=== PATIENT | male | born 1945 | race Caucasian/White ===

== ENCOUNTER 2023-01-11 11:32 | Outpatient (CLI) | payer MEDICARE, SELFPAY | END 2023-01-11 11:33 | disposition home or self-care (01) | PROVIDERS: PCP Family Medicine; Visit Provider Family Medicine | DX: I10 Essential (primary) hypertension (principal); E55.9 Vitamin D deficiency, unspecified; E11.9 Type 2 diabetes mellitus without complications; I25.10 Atherosclerotic heart disease of native coronary artery without angina pectoris | CPT/HCPCS: 80048; 80061 ==

== ENCOUNTER 2023-10-12 07:31 | Emergency (ER) | payer MEDICARE, SELFPAY ==
[2023-10-12 07:42] VITALS: BP 174/79; PULSE 67; RESP 18; TEMP 36.4; O2SAT 93; BMI 29.9
--- NOTE | 2023-10-12 08:41 | ED.GENADULT ---
HPI - General Adult General Chief complaint: Chest Pain Stated complaint: cough, headache, chest pain Time Seen by Provider: 10/12/23 08:11 History of Present Illness HPI narrative: patient has had a horrible cough since last Sunday and unable to get rid of it. Urgent care tested for strep throat negative, BP has been high 182/65 and feet are swelling up. feels went backwards last night, wheezing . concerned of wanting a cxr and right chest is sore. having recurring esquivel during the week but not today. 77-year-old man presenting to the emergency department with complaint of cough and sore throat. He has no head about a week of cough. Sounds to be primarily a prone cough. Was prescribed benzonatate I believe the 100 mg Tessalon Perles, and has not been helpful. Was also screen for strep throat. This was negative. Chest is sore now with a cough. Has a headache he describes as frontal. Also endorses neck pain when I ask. Has been now been on 3 days of Augmentin after called in reporting not improved with regard to cough. Noting that that has not done anything either. Related Data Home Medications Medication Instructions Recorded Confirmed ascorbic acid (vitamin C) 1,000 mg 1,000 mg PO DAILY 05/29/22 10/29/23 tablet aspirin 81 mg tablet,delayed 81 mg PO DAILY 05/29/22 10/29/23 release cholecalciferol (vitamin D3) 125 5,000 unit PO DAILY 05/29/22 10/29/23 mcg (5,000 unit) capsule magnesium oxide 400 mg (241.3 mg 400 mg PO DAILY 05/29/22 10/29/23 magnesium) tablet nitroglycerin 0.4 mg sublingual 0.4 mg sublingual Q5-15M PRN 05/29/22 10/29/23 tablet zinc gluconate 50 mg tablet 50 mg PO DAILY 05/29/22 10/29/23 metformin 500 mg tablet,extended 500 mg PO QPM 05/23/23 10/29/23 release 24 hr vitamin B complex (B 1 tab PO QDAY 10/29/23 10/29/23 Complex-Vitamin B12 tablet) Previous Rx's Medication Instructions Recorded blood sugar diagnostic (Contour #100 ea 06/01/23 Test Strips) lancets (Microlet Lancet) #100 ea 06/01/23 atenolol 50 mg tablet 50 mg PO QDAY #90 tabs 10/29/23 lisinopril 10 mg tablet 10 mg PO QDAY #30 tabs 10/29/23 Allergies Allergy/AdvReac Type Severity Reaction Status Date / Time azithromycin Allergy Severe Verified 10/29/23 14:12 shellfish derived Allergy Severe Verified 10/29/23 14:12 hydrocodone Allergy Intermediate Headache, Verified 10/29/23 14:12 N&V propoxyphene Allergy Intermediate Headache, Verified 10/29/23 14:12 N&V Review of Systems Status of ROS: Reports: 6 or more systems reviewed and unremarkable except as noted in History and below [facility] Medical History Situational depression ?F43.21 - Adjustment disorder with depressed mood (ICD-10) Type 2 diabetes mellitus without complication, with no history of insulin use ?E11.9 - Type 2 diabetes mellitus without complications (ICD-10) Erectile dysfunction ?N52.9 - Male erectile dysfunction, unspecified (ICD-10) COVID-19 virus infection ?U07.1 - COVID-19 (ICD-10) Vitamin D deficiency (02/04/11) ?E55.9 - Vitamin D deficiency, unspecified (ICD-10) Statin intolerance ?Z78.9 - Other specified health status (ICD-10) Lumbar back pain ?M54.50 - Low back pain, unspecified (ICD-10) Irritable bowel syndrome (12/01/08) ?K58.9 - Irritable bowel syndrome without diarrhea (ICD-10) History of drug abuse in remission ?F19.11 - Other psychoactive substance abuse, in remission (ICD-10) History of diverticulitis ?Z87.19 - Personal history of other diseases of the digestive system (ICD-10) History of concussion (07/02/20) ?Z87.820 - Personal history of traumatic brain injury (ICD-10) History of colonic polyps ?Z86.010 - Personal history of colonic polyps (ICD-10) Chronic pain syndrome ?G89.4 - Chronic pain syndrome (ICD-10) Arteriosclerotic cardiovascular disease ?I25.10 - Atherosclerotic heart disease of [place] coronary artery without angina pectoris (ICD-10) Hypertension ?I10 - Essential (primary) hypertension (ICD-10) Surgical History History of total knee replacement (2000) ?Z96.659 - Presence of unspecified artificial knee joint (ICD-10) History of spinal surgery ?Z98.890 - Other specified postprocedural states (ICD-10) History of hernia repair (1988) ?Z98.890 - Other specified postprocedural states (ICD-10) ?Z87.19 - Personal history of other diseases of the digestive system (ICD-10) History of coronary artery stent placement (07/31/20) ?Z95.5 - Presence of coronary angioplasty implant and graft (ICD-10) History of arthroscopy of left shoulder (02/04/16) ?Z98.890 - Other specified postprocedural states (ICD-10) Family History Son Epilepsy Type 2 diabetes mellitus Father Stomach cancer Prostate cancer Mother Type 2 diabetes mellitus Brother Type 2 diabetes mellitus Social History Narrative: , 3 kids, retired, non-smoker, no alcohol Smoking Status: Former smoker Non-prescribed substance use: denies use Little interest or pleasure in doing things: not at all Feeling down, depressed, or hopeless: not at all Exam Narrative: Exam Narrative: Pleasant. NAD. Maybe a little tired. Sounds laryngitic. Oropharynx with a little posterior oropharyngeal irritation not exactly cobblestoning. Coarseness to breath sounds in the left upper chest. No wheeze. Neck is supple without lymphadenopathy. Trachea midline. There is no stridor. Heart in regular rate and rhythm. Extremities well perfused without edema. Noted pulse ox initially 93%. On review of record this looks to be 2-3 points lower than usual. Const: Vital Signs, click to edit/add: Vital Signs - 24 hr 10/12/23 07:42 Temperature 97.5 F L Pulse Rate [Right Pulse Oximeter] 67 Respiratory Rate 18 Blood Pressure [Ri ght Upper Arm] 174/79 H Pulse Oximetry 93 Oxygen Delivery Me thod Room Air Documenting provider has reviewed patient's vital signs: yes Course Vital Signs Vital signs: Initial Vital Signs Temperature 97.5 F L 10/12/23 07:42 Temperature Source Temporal Artery Scan 12/29/23 07:42 Pulse Rate 67 10/12/23 07:42 Respiratory Rate 18 10/12/23 07:42 Blood Pressure 174/79 H 10/12/23 07:42 Blood Pressure Mean 110 H 10/12/23 07:42 Blood Pressure Position Sitting 10/12/23 07:42 Pulse Oximetry 93 10/12/23 07:42 Oxygen Delivery Method Room Air 10/12/23 07:42 Vital Signs Temperature 97.5 F L 10/12/23 07:42 Pulse Rate 67 10/12/23 07:42 Respiratory Rate 18 10/12/23 07:42 Blood Pressure 174/79 H 10/12/23 07:42 Pulse Oximetry 93 10/12/23 07:42 Oxygen Delivery Method Room Air 10/12/23 07:42 Temperature 97.5 F L 10/12/23 07:42 Pulse Rate 67 10/12/23 07:42 Respiratory Rate 18 10/12/23 07:42 Blood Pressure 174/79 H 10/12/23 07:42 Pulse Oximetry 93 10/12/23 07:42 Oxygen Delivery Method Room Air 10/12/23 07:42 Medical Decision Making MDM Narrative Medical decision making narrative: Considering community prevalence I would screen for COVID influenza and actually RSV. May have a pneumonia, bacterial. Cough also partly potentially related to postnasal drip. Slightly suppressed oxygen saturations but might indicate some pulmonary congestion. Suppose could have heart failure exacerbation; undiagnosed on review of records. Underlying history of diabetes. I would focus on infectious etiology at this point One-view chest x-ray reviewed by me looks to so some interstitial congestion. Radiology over-read below. INDICATION: COUGH, CHEST PAIN TECHNIQUE: Chest 1 views. COMPARISON: Chest radiograph on May 12, 2022 FINDINGS/IMPRESSION: The heart is mildly enlarged, likely accentuated by portable technique. There is mild pulmonary vascular congestion and faint patchy airspace opacities bilaterally which may be secondary to edema versus an acute infectious/inflammatory process. Similar appearing prominent bibasilar interstitial markings, likely related to fibrosis. No focal airspace consolidation, large pleural effusion, or pneumothorax. No acute fracture or malalignment. Degenerative changes of the bilateral shoulders. Was positive ultimately for RSV. I think this is consistent with findings and chest x-ray. Might benefit from course of prednisone. Discussed potential effect on blood sugars. This is directed little bit more at the laryngitis. Might be helpful for his cough. He had noted wheeze but I think that is more of an upper airway description. I did not hear any wheeze today. I do not think there is an actual bacterial pneumonia here. See patient discharge Lab Data Lab results reviewed: Yes I reviewed the patient's lab results Labs: Lab Results 10/12/23 Range/Units 08:43 SARS-CoV-2 (PCR) Negative SARS-CoV-2 (Negative) Influenza Type A (PCR) Negative PCR FLU A (Negative) Influenza Type B (PCR) Negative PCR FLU B (Negative) RSV (PCR) POSITIVE PCR RSV A (Negative) Discharge Plan Discharge Clinical Impression: Cough, Laryngitis, RSV bronchiolitis, Pharyngitis Patient Disposition: Home w/ Parent or Adult Condition: Stable Additional Instructions: Focus on hydration. Sleep with head of bed elevated. Might sleep under the mist of a cool mist humidifier. Yes, can try a tea with lemon and honey for cough. Maybe a little bit of straight honey as well? Menthol vapors might be helpful. Delsym or similar might be helpful for cough as well Could try a sucking on ice chips for cough? Could try anesthetic throat lozenges or sprays like Sucrets or Chloraseptic for your throat I do think you can stop the Augmentin Will send in some prednisone Be aware that prednisone can raise your blood sugars a little bit. Prescriptions: No Action vitamin B complex [B Complex-Vitamin B12] Tablet 1 tab PO QDAY atenolol 50 mg tablet 50 mg PO QDAY Qty: 90 3RF lisinopril 10 mg tablet 10 mg PO QDAY Qty: 30 1RF cholecalciferol (vitamin D3) 125 mcg (5,000 unit) capsule 5,000 unit PO DAILY zinc gluconate 50 mg tablet 50 mg PO DAILY magnesium oxide 400 mg (241.3 mg magnesium) tablet 400 mg PO DAILY aspirin 81 mg tablet,delayed release (DR/EC) 81 mg PO DAILY ascorbic acid (vitamin C) 1,000 mg tablet 1,000 mg PO DAILY nitroglycerin 0.4 mg tablet, sublingual 0.4 mg sublingual Q5-15M PRN metformin 500 mg tablet extended release 24 hr 500 mg PO QPM (DME) Contour Test Strips Strip See Rx Instructions .Route Qty: 100 3RF Rx Instructions: Patient to test once daily (DME) lancets [Microlet Lancet] Misc See Rx Instructions .Route Qty: 100 3RF Rx Instructions: Patient to test once daily Follow Up/Referrals: Jacob Shabazz MD [Primary Care Provider] - Stand Alone Forms: [employer] Info Instructions
--- NOTE | 2023-10-12 08:43 | CRLHL7_ITS ---
For Patients: As a result of the Century Cures Act, medical imaging exams and procedure reports are released immediately into your electronic medical record. You may view this report before your referring provider. If you have questions, please contact your health care provider. INDICATION: COUGH, CHEST PAIN TECHNIQUE: Chest 1 views. COMPARISON: Chest radiograph on May 12, 2022 FINDINGS/IMPRESSION: The heart is mildly enlarged, likely accentuated by portable technique. There is mild pulmonary vascular congestion and faint patchy airspace opacities bilaterally which may be secondary to edema versus an acute infectious/inflammatory process. Similar appearing prominent bibasilar interstitial markings, likely related to fibrosis. No focal airspace consolidation, large pleural effusion, or pneumothorax. No acute fracture or malalignment. Degenerative changes of the bilateral shoulders. Dictated by Camden Villanueva MD @ 10/12/2023 9:47:56 AM (Electronically Signed)
[2023-10-12 09:33] LABS: PCR FLU A Negative PCR FLU A (Negative); PCR FLU B Negative PCR FLU B (Negative); PCR RSV POSITIVE PCR RSV (Negative)
[2023-10-12 09:40] LABS: SARS PCR* Negative SARS-CoV-2 (Negative)
== END 2023-10-12 10:17 | disposition home or self-care (01) ==
PROVIDERS: Emergency Provider Family Medicine; PCP Family Medicine
DX: J21.0 Acute bronchiolitis due to respiratory syncytial virus (principal); J04.0 Acute laryngitis
CPT/HCPCS: 71045; 87631; 99283; 99284

== ENCOUNTER 2023-11-16 14:52 | Emergency (ER) | payer MEDICARE, SELFPAY ==
[2023-11-16] VITALS (19 sets, daily range): BP systolic 126–182; BP diastolic 77–110; PULSE 53–81; RESP 18; TEMP 36.2; O2SAT 92–98; BMI 28.5
--- NOTE | 2023-11-16 15:11 | CRLHL7_ITS ---
For Patients: As a result of the Century Cures Act, medical imaging exams and procedure reports are released immediately into your electronic medical record. You may view this report before your referring provider. If you have questions, please contact your health care provider. DATE: 11/16/2023 CLINICAL HISTORY: Patient with slurred speech. TECHNIQUE: Standard helical CT image acquisition of the neck up to the skull base after bolus intravenous contrast enhancement. 2D and 3D MIP images for post-processing were performed and interpreted on an independent workstation and 3D images were permanently archived. COMPARISON: CT same day. FINDINGS: The origins of the great vessels from the aortic arch are patent. The origin of the right vertebral artery demonstrates severe narrowing. The origin of the left vertebral artery is patent. The common carotid arteries are patent. There is no stenosis at the origin of the right internal carotid artery. There is no stenosis at the origin of the left internal carotid artery. The rest of the cervical segments of the internal carotid arteries are patent up to the skull base. The right vertebral artery is dominant. The cervical segments of the vertebral arteries are patent up to the skull base. The visualized lung apices are unremarkable. The thyroid gland is unremarkable. The soft tissues of the neck are unremarkable. There are degenerative changes in the cervical spine. 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 Patent rest of the cervical vasculature. Please note that all CT scans at this facility use dose modulation, iterative reconstruction, and/or weight-based dosing when appropriate to reduce radiation dose to as low as reasonably achievable. Dictated by Gamaliel Walters MD @ 11/16/2023 7:16:29 PM (Electronically Signed)
--- NOTE | 2023-11-16 15:11 | CRLHL7_ITS ---
For Patients: As a result of the Century Cures Act, medical imaging exams and procedure reports are released immediately into your electronic medical record. You may view this report before your referring provider. If you have questions, please contact your health care provider. INDICATION: Change in speech pattern. COMPARISON: July 07, 2020 TECHNIQUE: CT examination of the head was performed as axial sections without intravenous contrast. Images were obtained from the vertex of the skull through the skull base. Please note that all CT scans at this facility use dose modulation, iterative reconstruction, and/or weight-based dosing when appropriate to reduce radiation dose to as low as reasonably achievable. FINDINGS: The brain shows no sign of mass lesion, mass effect, hemorrhage, or edema. There are involutional changes. There is moderate to severe cortical atrophy and there is moderate white matter disease. There is no hydrocephalus. The atrophy is in a bifrontal and bitemporal and cerebellar distribution. The visualized portions of the orbits are normal in appearance. The osseous structures are normal in appearance with no sign of abnormality in the skull base or calvarium. IMPRESSION: Involutional changes. No acute appearing finding. Please note that all CT scans at this facility use dose modulation, iterative reconstruction, and/or weight-based dosing when appropriate to reduce radiation dose to as low as reasonably achievable. Dictated by Teodoro Uribe MD @ 11/16/2023 3:46:03 PM (Electronically Signed)
--- NOTE | 2023-11-16 15:11 | CRLHL7_ITS ---
For Patients: As a result of the Century Cures Act, medical imaging exams and procedure reports are released immediately into your electronic medical record. You may view this report before your referring provider. If you have questions, please contact your health care provider. DATE: 11/16/2023 CLINICAL HISTORY: Patient with slurred speech. TECHNIQUE: Standard helical CT image acquisition through the intracranial circulation following intravenous administration of contrast material with bolus tracking. 2D and 3D MIP images for post-processing were performed and interpreted on an independent workstation and 3D images were permanently archived. COMPARISON: CT same day. FINDINGS: There is no cerebral aneurysm or large vessel occlusion. The right internal carotid artery is normal. The right middle cerebral artery and its branches are normal. The right anterior cerebral artery and its branches are normal. The left internal carotid artery is normal. The left middle cerebral artery and its branches are normal. The left anterior cerebral artery and its branches are normal. The anterior communicating artery is well visualized and appears normal. The right vertebral artery and PICA are normal. The left vertebral artery and PICA are normal. The right vertebral artery is dominant. The basilar artery is patent and appears normal. The right posterior cerebral artery is normal. The left posterior cerebral artery is normal. The visualized venous structures are patent. IMPRESSION: Normal CT angiogram of the head without intracranial aneurysm or other neurovascular abnormality. Please note that all CT scans at this facility use dose modulation, iterative reconstruction, and/or weight-based dosing when appropriate to reduce radiation dose to as low as reasonably achievable. Dictated by Gamaliel Walters MD @ 11/16/2023 7:18:52 PM (Electronically Signed)
[2023-11-16 15:25] LABS: Lactate* 1.1 mmol/L (0.5-1.9)
[2023-11-16 15:27] LABS: Creatinine, Point-of-Care* 1.4 mg/dl (0.6-1.3)
[2023-11-16 15:27] LABS: Basophils Absolute Auto 0.03 K/uL (0.00-0.30); Basophils Percent Auto 0.5 % (0.0-3.0); Eosinophils Absolute Auto 0.27 K/uL (0.00-0.50); Eosinophils Percent Auto 4.4 % (0.0-7.0); Hematocrit 42.8 % (37.0-53.0); Hemoglobin* 13.4 gm/dL (13.5-17.5); Immature Granulocytes Abs Auto 0.01 K/uL (0.00-0.30); Immature Granulocytes Pct Auto 0.2 %; Lymphocytes Absolute Auto 1.23 K/uL (0.90-2.90); Mean Corpuscular HGB Conc 31 gm/dL (32-36); Mean Corpuscular Hemoglobin 31 pg (26-34); Mean Corpuscular Volume 98 fL (80-100); Neutrophils Absolute Auto 4.12 K/uL (1.7-7.0); Neutrophils Percent Auto 66.9 % (42.0-72.0); Platelet Count* 228 K/uL (140-440); RDW Coefficient of Variation % 13.5 % (11.5-15.5); Red Blood Count 4.37 m/uL (4.30-5.90); White Blood Count* 6.15 K/uL (4.50-11.00)
[2023-11-16 15:28] LABS: Slide Review Reflex No
[2023-11-16 15:31] LABS: Troponin, Point-of-Care* 0.01 ng/ml (0.01-0.04)
[2023-11-16 15:46] LABS: Chloride* 106 mmol/L (96-114); Potassium* 4.6 mmol/L (3.6-5.1); Sodium* 141 mmol/L (135-149)
[2023-11-16 15:49] LABS: Creatinine* 1.3 mg/dL (0.5-1.5); Est. Creatinine Clearance* 50.57; Estimated Glomerular Filt Rate 56 ml/min
[2023-11-16 15:50] LABS: Anion Gap 10 mEq/L (7-15); Blood Urea Nitrogen* 22 mg/dL (7-30); Calcium* 9.3 mg/dL (8.4-10.6); Carbon Dioxide* 25 mmol/L (20-32); Glucose* 116 mg/dL (60-115)
--- NOTE | 2023-11-16 15:51 | ED.GENADULT ---
HPI - General Adult General Chief complaint: Allergic Reaction Stated complaint: dizzy, weak, medication complications Time Seen by Provider: 11/16/23 15:01 History of Present Illness HPI narrative: A 78-year-old male presenting today with tingling and swelling sensation of his mouth. Patient states that he was on lisinopril starting on the 29 of October and developed a dry hacking cough. Because of this he stopped his lisinopril yesterday and took his 1st dose of losartan today. He states that approximately 1 hour after taking the losartan he started to feel tingling around his lips and inside of his mouth. He feels like his tongue and lips are swollen. He is not having any difficulty breathing but feels like it is difficult to talk. He states that this morning he also felt lightheaded. He denies any vertigo. Denies nausea or vomiting. Does state that he has a bit of a headache. Denies weakness of the extremities, denies confusion. Related Data Home Medications Medication Instructions Recorded Confirmed ascorbic acid (vitamin C) 1,000 mg 1,000 mg PO DAILY 05/29/22 10/29/23 tablet aspirin 81 mg tablet,delayed 81 mg PO DAILY 05/29/22 10/29/23 release cholecalciferol (vitamin D3) 125 5,000 unit PO DAILY 05/29/22 10/29/23 mcg (5,000 unit) capsule magnesium oxide 400 mg (241.3 mg 400 mg PO DAILY 05/29/22 10/29/23 magnesium) tablet nitroglycerin 0.4 mg sublingual 0.4 mg sublingual Q5-15M PRN 05/29/22 10/29/23 tablet zinc gluconate 50 mg tablet 50 mg PO DAILY 05/29/22 10/29/23 metformin 500 mg tablet,extended 500 mg PO QPM 05/23/23 10/29/23 release 24 hr vitamin B complex (B 1 tab PO QDAY 10/29/23 10/29/23 Complex-Vitamin B12 tablet) Previous Rx's Medication Instructions Recorded blood sugar diagnostic (Contour #100 ea 06/01/23 Test Strips) lancets (Microlet Lancet) #100 ea 06/01/23 atenolol 50 mg tablet 50 mg PO QDAY #90 tabs 10/29/23 losartan 50 mg tablet 50 mg PO QDAY #30 tabs 11/15/23 apixaban 2.5 mg tablet (Eliquis) 2.5 mg PO BID #60 tabs 11/16/23 Allergies Allergy/AdvReac Type Severity Reaction Status Date / Time azithromycin Allergy Severe Verified 11/16/23 15:27 shellfish derived Allergy Severe Verified 11/16/23 15:27 hydrocodone Allergy Intermediate Headache, Verified 11/16/23 15:27 N&V propoxyphene Allergy Intermediate Headache, Verified 11/16/23 15:27 N&V RADHA Inhibitors AdvReac Cough Verified 11/16/23 15:27 Review of Systems Status of ROS: Reports: 10 or more systems reviewed and unremarkable except as noted in History and below [facility] Medical History (Updated 11/16/23 @ 16:59 by Mei Sorensen MD) Primary hypertension ?I10 - Essential (primary) hypertension (ICD-10) Type 2 diabetes mellitus, without long-term current use of insulin ?E11.9 - Type 2 diabetes mellitus without complications (ICD-10) Situational depression ?F43.21 - Adjustment disorder with depressed mood (ICD-10) Erectile dysfunction ?N52.9 - Male erectile dysfunction, unspecified (ICD-10) COVID-19 virus infection ?U07.1 - COVID-19 (ICD-10) Vitamin D deficiency (02/04/11) ?E55.9 - Vitamin D deficiency, unspecified (ICD-10) Statin intolerance ?Z78.9 - Other specified health status (ICD-10) Lumbar back pain ?M54.50 - Low back pain, unspecified (ICD-10) Irritable bowel syndrome (12/01/08) ?K58.9 - Irritable bowel syndrome without diarrhea (ICD-10) History of drug abuse in remission ?F19.11 - Other psychoactive substance abuse, in remission (ICD-10) History of diverticulitis ?Z87.19 - Personal history of other diseases of the digestive system (ICD-10) History of concussion (07/02/20) ?Z87.820 - Personal history of traumatic brain injury (ICD-10) History of colonic polyps ?Z86.010 - Personal history of colonic polyps (ICD-10) Chronic pain syndrome ?G89.4 - Chronic pain syndrome (ICD-10) Arteriosclerotic cardiovascular disease ?I25.10 - Atherosclerotic heart disease of [place] coronary artery without angina pectoris (ICD-10) Surgical History History of total knee replacement (2000) ?Z96.659 - Presence of unspecified artificial knee joint (ICD-10) History of spinal surgery ?Z98.890 - Other specified postprocedural states (ICD-10) History of hernia repair (1988) ?Z98.890 - Other specified postprocedural states (ICD-10) ?Z87.19 - Personal history of other diseases of the digestive system (ICD-10) History of coronary artery stent placement (07/31/20) ?Z95.5 - Presence of coronary angioplasty implant and graft (ICD-10) History of arthroscopy of left shoulder (02/04/16) ?Z98.890 - Other specified postprocedural states (ICD-10) Family History Son Epilepsy Type 2 diabetes mellitus Father Stomach cancer Prostate cancer Mother Type 2 diabetes mellitus Brother Type 2 diabetes mellitus Social History Narrative: , 3 kids, retired, non-smoker, no alcohol Smoking Status: Former smoker Do you use any of these nicotine containing products: None Second hand tobacco smoke exposure: No How often do you have a drink containing alcohol: never AUDIT-C Alcohol total score: 0 Non-prescribed substance use: denies use Little interest or pleasure in doing things: not at all Feeling down, depressed, or hopeless: not at all service: No Exam Narrative: Exam Narrative: Well-nourished well-developed patient in no acute distress. Alert and oriented. Answers questions appropriately. Mood and affect are appropriate. Thoughts are goal oriented and rational. No tangential or magical thinking noted. Patient speaks in full sentences without needing to catch his breath. Speech is very mildly slurred. Sounds like he has something in his mouth when he talks- very mild dysarthria. HEENT: Normocephalic atraumatic. Pupils are equally round reactive to light. Extraocular muscles are intact. Conjunctivae are moist without any icterus noted. Moist mucous membranes. Posterior pharynx is normal. Neck is soft without any lymphadenopathy or thyromegaly. No masses are appreciated. Tongue and lips do not appear swollen. Cardiovascular: Heart is regular rate and rhythm S1 and S2 are present without any murmurs. Lungs: Clear to auscultation bilaterally no wheezes rhonchi or rales are appreciated. Patient takes deep breaths without any discomfort. Abdomen: Soft and nontender nondistended with normal bowel sounds. Extremities: Bilateral lower extremities are without edema. Skin: Well perfused. Strength is 5/5 of the upper and lower extremities. Reflexes are 2+ and symmetric at the knees. Romberg sign is negative. Cranial nerves 3-12 are normal. There is no nystagmus either horizontally or vertically. Gait is normal. Const: Vital Signs, click to edit/add: Vital Signs - 24 hr 11/16/23 14:59 11/16/23 15:38 11/16/23 15:39 Temperature 97.2 F L Pulse Rate 71 67 Pulse Rate [Right Pulse Oximeter] 74 Respiratory Rate 18 Blood Pressure 138/98 H Blood Pressure [Ri ght Upper Arm] 182/78 H Pulse Oximetry 96 98 95 Oxygen Delivery Me thod Room Air 11/16/23 15:45 11/16/23 15:46 11/16/23 16:00 Temperature Pulse Rate 61 65 62 Pulse Rate [Right Pulse Oximeter] Respiratory Rate Blood Pressure 143/88 H Blood Pressure [Ri ght Upper Arm] Pulse Oximetry 98 97 97 Oxygen Delivery Me thod 11/16/23 16:02 11/16/23 16:15 11/16/23 16:16 Temperature Pulse Rate 61 68 81 Pulse Rate [Right Pulse Oximeter] Respiratory Rate Blood Pressure 141/77 H 126/110 H Blood Pressure [Ri ght Upper Arm] Pulse Oximetry 96 92 96 Oxygen Delivery Me thod 11/16/23 16:25 Temperature Pulse Rate Pulse Rate [Right Pulse Oximeter] Respiratory Rate Blood Pressure Blood Pressure [Ri ght Upper Arm] Pulse Oximetry 95 Oxygen Delivery Me thod Course Course ED Course: Given his dysarthria, we did proceed with head CT followed by a CTA of head and neck. These were unremarkable. Lab work was unremarkable. Upon re-evaluation patient stated that his mouth was starting to feel better, his speech was also improved. EKG, read by me, shows atrial fibrillation with a pulse of 67. Did review patient's past medical records - the last EKG on file is from 2021, at that time he was in normal sinus rhythm. Patient is not anticoagulated, is on a daily baby aspirin. Discussed with patient that I do recommend an MRI and echo at this time. We are able to do an MRI while in the ER however patient is refusing further testing. We discussed the possibility of a stroke he given his symptoms and atrial fibrillation, patient states that he understands but does not want to proceed with any further testing. Vital Signs Vital signs: Initial Vital Signs Temperature 97.2 F L 11/16/23 14:59 Temperature Source Temporal Artery Scan 11/16/23 14:59 Pulse Rate 74 11/16/23 14:59 Respiratory Rate 18 11/16/23 14:59 Blood Pressure 182/78 H 11/16/23 14:59 Blood Pressure Mean 112 H 11/16/23 14:59 Blood Pressure Position Sitting 11/16/23 14:59 Pulse Oximetry 96 11/16/23 14:59 Oxygen Delivery Method Room Air 11/16/23 14:59 Vital Signs Temperature 97.2 F L 11/16/23 14:59 Pulse Rate 74 11/16/23 14:59 Respiratory Rate 18 11/16/23 14:59 Blood Pressure 182/78 H 11/16/23 14:59 Pulse Oximetry 96 11/16/23 14:59 Oxygen Delivery Method Room Air 11/16/23 14:59 Temperature 97.2 F L 11/16/23 14:59 Pulse Rate 81 11/16/23 16:16 Respiratory Rate 18 11/16/23 14:59 Blood Pressure 126/110 H 11/16/23 16:16 Pulse Oximetry 95 11/16/23 16:25 Oxygen Delivery Method Room Air 11/16/23 14:59 Medical Decision Making MDM Narrative Medical decision making narrative: 78-year-old male with dysarthria. Angioedema versus stroke on the differential diagnoses. At this time I do recommend outpatient MRI and echocardiogram. Also put the patient on Eliquis at this time given his atrial fibrillation. Medical Records Medical records reviewed: Yes I reviewed the patient's medical records Lab Data Lab results reviewed: Yes I reviewed the patient's lab results Labs: Lab Results 11/16/23 11/16/23 Range/Units 15:14 15:25 WBC 6.15 (4.50-11.00) K/uL RBC 4.37 (4.30-5.90) m/uL Hgb 13.4 L (13.5-17.5) gm/dL Hct 42.8 (37.0-53.0) % MCV 98 (80-100) fL MCH 31 (26-34) pg MCHC 31 L (32-36) gm/dL RDW Coeff of Caitlin 13.5 (11.5-15.5) % Plt Count 228 (140-440) K/uL Neut % (Auto) 66.9 (42.0-72.0) % Lymph % (Auto) 20.0 (20-44) % [place] % (Auto) 8.0 (0.0-11.0) % Eos % (Auto) 4.4 (0.0-7.0) % Baso % (Auto) 0.5 (0.0-3.0) % Neut # (Auto) 4.12 (1.7-7.0) K/uL Lymph # (Auto) 1.23 (0.90-2.90) K/uL [place] # (Auto) 0.50 (0.00-0.90) K/UL Eos # (Auto) 0.27 (0.00-0.50) K/uL Baso # (Auto) 0.03 (0.00-0.30) K/uL Abs Immat Gran (auto) 0.01 (0.00-0.30) K/uL Imm/Tot Granulo (auto) 0.2 % Sodium 141 (135-149) mmol/L Potassium 4.6 (3.6-5.1) mmol/L Chloride 106 (96-114) mmol/L Carbon Dioxide 25 (20-32) mmol/L Anion Gap 10 (7-15) mEq/L BUN 22 (7-30) mg/dL Creatinine 1.3 (0.5-1.5) mg/dL Estimated Creat Clear 50.57 Estimated GFR 56 ml/min Glucose 116 H (60-115) mg/dL Lactate 1.1 (0.5-1.9) mmol/L Calcium 9.3 (8.4-10.6) mg/dL Troponin I < 0.01 L (0.01-0.04) ng/mL C-Reactive Protein 1.0 (0.5-1.0) mg/dL POC Creatinine 1.4 H (0.6-1.3) mg/dl POC Troponin I 0.01 (0.01-0.04) ng/ml Imaging Data CT scan - head: Attestation: I have reviewed the pertinent imaging results. Radiologist's impression: CT examination of the head was performed as axial sections without intravenous contrast. Images were obtained from the vertex of the skull through the skull base. Please note that all CT scans at this facility use dose modulation, iterative reconstruction, and/or weight-based dosing when appropriate to reduce radiation dose to as low as reasonably achievable. FINDINGS: The brain shows no sign of mass lesion, mass effect, hemorrhage, or edema. There are involutional changes. There is moderate to severe cortical atrophy and there is moderate white matter disease. There is no hydrocephalus. The atrophy is in a bifrontal and bitemporal and cerebellar distribution. The visualized portions of the orbits are normal in appearance. The osseous structures are normal in appearance with no sign of abnormality in the skull base or calvarium. IMPRESSION: Involutional changes. No acute appearing finding. neck CTA: Attestation: I have reviewed the pertinent imaging results. Radiologist's impression: Study:?CT Neck Angio Angio W/ 95CC ISOVUE 370-11/16/2023 3:29:29 PM Ordering Physician:Jose Eduardo Hurley Preliminary Report: FINDINGS: The cervical arteries appear patent. No convincing evidence suspicious high-grade narrowing or prominent aneurysm formation. Head CTA: Attestation: I have reviewed the pertinent imaging results. Radiologist's impression: Preliminary Report: FINDINGS: The visualized 1st and 2nd order intracranial vessels appear patent. No convincing evidence of high grade narrowing or prominent aneurysm formation. ECG Data Attestation: I personally reviewed and interpreted this ECG as follows: Discharge Plan Discharge Clinical Impression: Dysarthria, Atrial fibrillation Patient Disposition: Home, Self-Care Condition: Improved Additional Instructions: It is possible that you had a small stroke today. Because of this I recommend you follow-up with your primary care provider this coming week to discuss getting both a brain MRI and an echocardiogram, which is an ultrasound of your heart. In the meantime, you do have atrial fibrillation which is an irregular heartbeat that can cause blood clots. Because of this you should start taking a blood thinner which will be sent to your pharmacy today. Prescriptions: New Eliquis 2.5 mg tablet 2.5 mg PO BID Qty: 60 0RF No Action vitamin B complex [B Complex-Vitamin B12] Tablet 1 tab PO QDAY atenolol 50 mg tablet 50 mg PO QDAY Qty: 90 3RF cholecalciferol (vitamin D3) 125 mcg (5,000 unit) capsule 5,000 unit PO DAILY zinc gluconate 50 mg tablet 50 mg PO DAILY magnesium oxide 400 mg (241.3 mg magnesium) tablet 400 mg PO DAILY aspirin 81 mg tablet,delayed release (DR/EC) 81 mg PO DAILY ascorbic acid (vitamin C) 1,000 mg tablet 1,000 mg PO DAILY nitroglycerin 0.4 mg tablet, sublingual 0.4 mg sublingual Q5-15M PRN metformin 500 mg tablet extended release 24 hr 500 mg PO QPM (DME) Contour Test Strips Strip See Rx Instructions .Route Qty: 100 3RF Rx Instructions: Patient to test once daily (DME) lancets [Microlet Lancet] Misc See Rx Instructions .Route Qty: 100 3RF Rx Instructions: Patient to test once daily losartan 50 mg tablet 50 mg PO QDAY Qty: 30 1RF Follow Up/Referrals: Jacob Shabazz MD [Primary Care Provider] - Stand Alone Forms: [facility]
[2023-11-16 16:13] LABS: Troponin I* < 0.01 ng/mL (0.01-0.04)
--- NOTE | 2023-11-16 17:31 | ED.NURSE ---
Patient's stated the pharmacy called them and said the Eliquis RX will cost them $500-600 out of pocket. Patient stated they cannot afford this medication at this time. Stated pharmacy recommended Warfarin. Pt and stated they will plan to talk to Dr. Shabazz on Sunday and will not brain picker the Eliquis at this time due to cost.
== END 2023-11-16 17:33 | disposition home or self-care (01) ==
PROVIDERS: Emergency Provider Family Medicine; PCP Family Medicine
DX: R47.1 Dysarthria and anarthria (principal); I48.91 Unspecified atrial fibrillation
CPT/HCPCS: 36415; 70450; 70496; 70498; 80048; 81001; 82565; 83605; 84484; 85025; 86140; 87086; 93005; 94761; 99284; 99285; Q9967

== ENCOUNTER 2024-03-13 10:21 | Outpatient (RCR) | payer MEDICARE, SELFPAY ==
--- NOTE | 2024-03-13 13:47 | PT.OPEX ---
PT [place] [facility] PT [facility] Outpatient Eval Start: 03/13/24 10:36 Freq: Status: Active Protocol: Document 03/13/24 11:32 CRP (Rec: 03/13/24 13:44 CRP [id number]) E-signed By Mor Holley PT Physical Therapy Outpatient Evaluation Insurance Information Recert Due Date 06/11/24 Insurance Name Medicare B Medical Diagnosis Low Back pain Lumbar radicular pain Lumbar stenosis Referring MD Dr Su Subjective Subjective Pt reports that about 2-3 months ago he woke with severe LBP. Pain is fairly central LBP that would goes into upper gluteals. Pt had spinal surgery many years ago and has been doing fine up until 2-3 months ago. No known reason for his pain. Pt then had an injection 2-3 weeks ago and has basically been pain free since. Pain can at times get to 2/10 but this is not very often and calms down quickly. Pain would get aggravated with prolonged sitting, bending or general activity. Pt would like to review what he can do on his own but beyond that he is not sure he needs further therapy. Pt will try on his own after today and only return to PT if he has any ongoing pain. Pain Comments Current 0/10 Can be as high as 2/10 Current Work Status Retired Objective Other/Pertinent Objective Trunk ROM Flex WNL, Ext aditya dec - noted hip ext tightness, Bilat SB mod dec Hip ROM flex WNL bilat, ER WFL bilat, Ext mod/aditya dec bilat MMT: Myotomes WNL. 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 At this time the pt is feeling pain free and has been instructed on a good HEP to work on moving forward. Pt would like to only proceed with PT if he feels his pain returns. With that said he would like to try independently for 2-3 weeks and only return to PT if needed. He will continue independently with PT exercise . Plan of Care Rehabilitation Potential Excellent Physical Therapy Goals 1. Pt will be independent with HEP in 6 weeks. 2. Pt will walk for exer 10-15 min daily without LBP in 10 weeks. 3. 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 Coordination/Communication With Referral Source Treatment Plan/Direct Interventions Joint Mobilization,Manual Therapy,Neuromuscular Re-ed, Self-Care/Home Management, Therapeutic Activities, Therapeutic Exercises Frequency/Duration 1-2x/wk PRN for 12 weeks Patient Will Be Discharged From Therapy Completion of LTG(s),Skills Plateau,Independent w/HEP, Independently Progressing Evaluation Billing Untimed Code Treatment Minutes 30 Complexity Low Certification Information Initial Certification Date 03/13/24 Ending Certification Date 06/11/24 Provider Signature Shows Agreement With POC & Medical Necessity Physician Signature & Date Requested Please Sign/Date Here Physician Comment/Change : Physician NPI Number #
== END 2024-07-11 23:59 | disposition home or self-care (01) ==
PROVIDERS: PCP Family Medicine; Visit Provider Family Medicine
DX: M54.50 Low back pain, unspecified (principal); M54.10 Radiculopathy, site unspecified; M48.061 Spinal stenosis, lumbar region without neurogenic claudication; Z51.89 Encounter for other specified aftercare
CPT/HCPCS: 97110; 97161

== ENCOUNTER 2024-05-19 13:17 | Outpatient (CLI) | payer MEDICARE, SELFPAY | END 2024-05-19 13:18 | disposition home or self-care (01) | LOC: FBOREF 13:17 | PROVIDERS: PCP Family Medicine; Visit Provider Family Medicine | DX: Z13.220 Encounter for screening for lipoid disorders (principal) | CPT/HCPCS: 80061 ==

== ENCOUNTER 2025-04-10 09:36 | Emergency (ER) | payer MEDICARE, SELFPAY ==
[2025-04-10] VITALS (31 sets, daily range): BP systolic 143–184; BP diastolic 80–115; PULSE 51–83; RESP 5–27; TEMP 36.6; O2SAT 88–98; BMI 29.6
--- OUTSIDE RECORDS SUMMARY | 2025-04-10 09:38 | XMS_ITS | Clinical Summary ---
Author Organization [facility] Address [address] [place] [id number] Care Team Providers Care Irrigation Foreman Name Role Phone Unavailable Primary Care Provider Unavailabl e Allergies Active Allergy Reactions Criticality Noted Date Comments Oxycodone Vomiting 06/03/2018 Propoxyphene Headache High 02/12/2018 Shellfish Derived Angioedema High 10/24/2016 Itching Azithromycin Throat Swelling/Closing 07/10/2008 Medications aspirin (ECOTRIN) 81 mg enteric coated tablet Take 81 mg by mouth once daily with a meal. Active cholecalciferol (VITAMIN D3) 5,000 unit capsule Take 5,000 Units by mouth once daily. Active magnesium oxide (MAG-OX 400) 400 mg tabletIndications :Type 2 diabetes mellitus without complication, without long-term current use of insulin (HC) Take 1 tablet by mouth once daily. 30 tablet 2 04/15/20 20 Active acetaminophen (TYLENOL) 325 mg tablet Take 1 tablet by mouth every 4 hours if needed. Max acetaminophen dose: 4000mg in 24 hrs. 0 07/08/20 20 Active nitroglycerin (NITROSTAT) 0.4 mg sublingual tabletIndications :ASHD (arteriosclerotic heart disease) Place 1 tablet under the tongue every 5 minutes if needed for Chest Pain (Up to 3 doses). 25 tablet 2 0 4:32 PM CDT 08/02/20 20 Active atorvastatin (LIPITOR) 10 mg tabletIndications :ASHD (arteriosclerotic heart disease) Take 0.5 tablets by mouth once daily. 30 tablet 3 08/05/20 20 Active lisinopriL (PRINIVIL; ZESTRIL) 5 mg tabletIndications :Essential hypertension Take 1 Tablet (5 mg) by mouth once daily. 90 Tablet 2 02/12/20 21 Active ketorolac 0.5 % ophthalmic (ACULAR) solution INSTILL 1 DROP IN RIGHT EYE FOUR TIMES DAILY 11/11/19 21 Active metoprolol tartrate (LOPRESSOR) 50 mg tabletIndications :ASHD (arteriosclerotic heart disease),[place]ia l hypertension Take 1 Tablet (50 mg) by mouth 2 times daily. 180 Tablet 3 03/31/20 21 Active blood-glucose meterIndications: Type 2 diabetes mellitus without complication, without long-term current use of insulin (HC) As directed. Dispense meter, test strips, lancets covered by pt ins. E11.9 NIDDM type II - Test 1 time/day 1 Each 05/24/20 21 Active blood sugar diagnostic (Blood Glucose Test) stripIndications: Type 2 diabetes mellitus without complication, without long-term current use of insulin (HC) Test 1 times per day. 100 Each 3 05/27/20 21 Active nortriptyline (PAMELOR) 10 mg capsuleIndication s:Concussion with loss of consciousness of 30 minutes or less, subsequent encounter Take one at bedtime for a week, then 2 caps at bedtime for a week, then 3 caps at bedtime. 90 Capsule 2 08/03/20 Active metFORMIN (GLUCOPHAGE XR) 500 mg Extended-Release tabletIndications :Type 2 diabetes mellitus with unspecified complications (HC) Take 2 Tablets (1,000 mg) by mouth once daily with evening meal. 180 Tablet 1 11/08/19 22 Active atenoloL (TENORMIN) 100 mg tablet Take 100 mg by mouth. 11/23/19 22 Active lisinopril-hydroc hlorothiazide (10-12.5 mg) tablet (PRINZIDE; ZESTORETIC) Take 1 Tablet by mouth once daily. 11/23/19 22 Active cyanocobalamin (VITAMIN B12) 1,000 mcg tablet once daily. A ctive lancetsIndication s:Type 2 diabetes mellitus without complication, without long-term current use of insulin (HC) Test 1 times per day. 100 Each 3 05/31/20 23 Active Active Problems Problem Noted Date Diagnosed Date Thoracic aortic ectasia 08/03/2021 ASHD (arteriosclerotic heart disease) 08/02/2020 Overview (08/02/2020): 08/02/20: s/p ANGEL x1 mLAD, balloon angioplasty to dLAD for plaque shifting Unstable angina 07/31/2020 Type 2 diabetes mellitus with unspecified compli cations 10/28/2019 Status post left knee replacement 05/27/2018 Essential hypertension 05/23/2018 Morbid obesity 10/21/2017 Type 2 diabetes mellitus wit hout complication, without long-term current use of insulin 07/18/2016 Colon polyps 07/15/2013 Overview (11/26/2018): Hyperplastic 2006 Colonoscopy 11/2018 diverticulosis, repeat in 10 years Vitamin D deficiency 02/04/2011 IBS (irritable bowel syndrome) 12/01/2008 Generalized osteoarthrosis, unspecified site Resolved Problems Problem Noted Date Diagnosed Date Resolved Date Type 2 diabetes mellitus without complication 01/13/20 16 07/18/2016 Hypertension 02/21/2013 05/23/2018 Chest pain, unspecified 09/24/201212/15 Type 2 diabetes, HbA1c goal < 7% 10/26/2010 01/13/2016 Unspecified essential hypertension 11/13/2006 02/21/2013 Immunizations Immunization Administration Dates Next Due Influenza, High-dose Inactivated 018,07/02/2018,06/02/2016,2014 Influenza, IIV4 07/06/2014 Influenza, Inactivated IIV3 (Age 65+ Years) Preserv Free 07/18/2019,08/10/2017 Pneumococcal Poly,23-Valent (Pneumovax) 08/25/2011 Pneumococcal conj 13-Valent (Prevnar 13) 07/14/2016 Td, Preservative Free (age > = 7 Years) 11/13/2006 Family History Medical History Relation Name Comments Cancer-prostate Father Relation Name Status Comments Father Social History Tobacco Use Types Packs/Day Years Used Date Smoking Tobacco: Former Cigarettes Q uit: 1999 Smokeless Tobacco: Never Tobacco Cessation:Counseling Given: Yes Alcohol Use Standard Drinks/Week Comments No 0 (1 standard drink = 0.6 oz pur e alcohol) Quit 1999 PHQ-2 Answer Date Recorded PHQ-2 TOTAL SCORE 0 09/16/2020 Social Connections Answer Date Recorded Frequency of Communication with Friends and Fami ly Not on file 10/15/2021 Financial Resource Strain Answer Date R ecorded Difficulty of Paying Living Expenses Not on file 10/15/2021 Difficulty of Paying Living Expenses Not on file 10/15/2021 Sex and Gender Information Value Date Recorded Sex Assigned at Not on file 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 Gender Identity Not on file Sexual Orientation Not on file Obstetrics History Last Filed Vital Signs Vital Sign Reading Time Taken Comments Blood Pressure 122/70 12/07/2021 1:42 PM CURING BIN OPERATOR Pulse 58 12/07/2021 1:42 PM CURING BIN OPERATOR Temperature 36.4 C (97.6 F) 02/15/2021 10:30 AM CDT Respiratory Rate 16 12/07/2021 1:42 PM CURING BIN OPERATOR Oxygen Saturation 96% 12/07/2021 1:42 PM CURING BIN OPERATOR Inhaled Oxygen Concentration - - Weight 111.8 kg (246 lb 6.4 oz) 12/07/2021 1:42 PM CURING BIN OPERATOR Height 183 cm (6' 0.05) 12/07/2021 1:42 PM CURING BIN OPERATOR Body Mass Index 33.37 12/07/2021 1:42 PM CURING BIN OPERATOR Plan of Treatment Health Maintenance Due Date Last Done Comments Tdap 1955 Zoster (shingles) series for age 50+ (1 of 2) 1994 Tetanus booster 11/13/2016 11/13/2006 Medicare Wellness for age 65+ 05/24/2019 05/23/2018 RSV vaccine for adults or (1 - 1-dose 75+ series) 2019 Depression screening for age 12+ 09/17/2021 09/17/2020, 09/16/2020, 09/23/2019, Additional history exists BMI (ht and wt on same day) for age 18+ 12/07/2022 12/07/2021, 04/13/2021, 02/15/2021, Additional history exists COVID-19 vaccine series ( season) 2024 Influenza Vaccine (Season Ended) 2025 07/18/2019, 07/02/2018, 07/02/2018, Additional history exists Pneumococcal series for age 50+ Completed 07/14/2016, 08/25/2011 Hepatitis B series for 19+ Aged Out N o longer eligible based on patient's age to complete this topic Medical Devices Implanted Type Area District Plant Superintendent Device Identifier Shelf Expiration Date Model / Serial / Lot Tibial Cone Metaphyseal Implanted:Qty: 1 on 06/04/2018 by Krunal Romo MD at [facility] Left: Knee [employer] 07/05/2027 / / [id number] Tibial Insert And Screw Constrained Codylar Implanted:Qty: 1 on 06/04/2018 by Krunal Romo MD at [facility] Left: Knee [employer] 07/31/2025 / / [id number] Femoral Component And Screw Constrained Condylar Cemented Implanted:Qty: 1 on 06/04/2018 by Krunal Romo MD at [facility] Left: Knee [employer] 03/04/2023 / / [id number] Stem Extension Offset Patient Services Coordinator And Screw Femoral And Tibial Cemented Implanted:Qty: 1 on 06/04/2018 by Krunal Romo MD at [facility] Left: Knee [employer] 09/27/2027 / / [id number] Splined Stem Extension Femoral And Tibial Cemented Implanted:Qty: 1 on 06/04/2018 by Krunal Romo MD at [facility] Left: Knee [employer] 03/17/2028 / / [id number] Tibial Tray Cemented Implanted:Qty: 1 on 06/04/2018 by Krunal Romo MD at [facility] Left: Knee [employer] 05/05/2028 / / [id number] Splined Stem Extension Femoral And Tibial Cemented Implanted:Qty: 1 on 06/04/2018 by Krunal Romo MD at [facility] Left: Knee [employer] 03/17/2028 / / [id number] Simplex P Bone Cement Radiopaque Implanted:Qty: 2 on 06/04/2018 by Krunal Romo MD at [facility] Left: Knee [employer] 12/13/2019 / / [id number] Simplex P Bone Cement Radipaque Implanted:Qty: 2 on 06/04/2018 by Krunal Romo MD at [facility] Left: Knee [employer] 05/14/2020 / / [id number] Insurance [id number] [place] [id number] MEDICARE PB ONLY MEDICARE PART B HB ONLY MEDICARE PART A HB ONLY [id number] [place] [id number] MEDICARE PART B HB ONLY MEDICARE PROVIDER BASED Advance Directives * Full Code (Latest Code Status on File) Date Activated Date Inactivated Comments 07/31/2020 10:37 PM 08/03/2020 12:34 PM Question Answer Comments Code Status Discussion: Per Existing Order * Full Code Date Activated Date Inactivated Comments 06/04/2018 1:37 PM 06/06/2018 3:00 PM * Full Code Date Activated Date Inactivated Comments 06/04/2018 8:46 AM 06/04/2018 1:37 PM * Full Code Date Activated Date Inactivated Comments 09/24/2012 7:36 PM 09/25/2012 12:50 PM
--- NOTE | 2025-04-10 09:51 | XR_ITS ---
Patient: GERMAINE STEWARD Facility:?[facility] Patient ID:?[id number] Site Patient ID:?[id number]. Site :?[id number] Study:?XRay-Chest 2V-04/10/2025 10:35:21 AM Ordering Physician:Jose Eduardo Hurley Final Report: INDICATION: Chest pain. TECHNIQUE: Chest 2 views. COMPARISON: 10/12/2023 FINDINGS: Peripheral coarse interstitial opacities appear slightly more confluent compared to prior. No significant pleural effusion. No pneumothorax. Heart size and mediastinal contours are stable. IMPRESSION: Slight increase in peripheral coarsened interstitial opacities compared to 202. 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 Follow-up chest CT may be performed for confirmation. Dictated by Robby Jean MD @ 04/10/2025 10:47:52 AM Signed by:?Robby Jean MD @04/10/2025 10:47:52 AM (Electronic Signature)
[2025-04-10] MEDS: ASPIRIN 81 MG TAB.CHEW 162 MG PO (10:03)
--- NOTE | 2025-04-10 10:12 | ED.GENADULT ---
HPI - General Adult General Chief complaint: Chest Pain Stated complaint: chest pain Time Seen by Provider: 04/10/25 09:47 Source: patient Mode of arrival: ambulatory Limitations: no limitations History of Present Illness HPI narrative: 79-year-old male presenting today with chest pain. States that the pain woke him up from sleep approximately 6 hours ago. Pain located in the central chest. He also had concurrent pain across both shoulders. He states that it was a sharp pain that occurred unsure how long it lasted. Went away and then came again perhaps 20-30 minutes later. Now he complains of a soreness across the chest and across both shoulders. He denies feeling short of breath, dizzy, diaphoretic. He is not nauseated, denies vomiting. Pain does not get worse or better with deep inspiration. He does state that he ?just do not feel right?. Patient does have a history of type 2 diabetes, coronary artery disease and chronic pain. Patient is not anticoagulated for any reason. Stent placement in 2019. Related Data Home Medications ?Medication ?Instructions ?Recorded ?Confirmed ascorbic acid (vitamin C) 1,000 mg 1,000 mg PO DAILY 05/29/22 04/10/25 tablet aspirin 81 mg tablet,delayed 81 mg PO DAILY 05/29/22 04/10/25 release cholecalciferol (vitamin D3) 125 5,000 unit PO DAILY 05/29/22 04/10/25 mcg (5,000 unit) capsule zinc gluconate 50 mg tablet 50 mg PO DAILY 05/29/22 04/10/25 vitamin B complex (B 1 tab PO QDAY 10/29/23 04/10/25 Complex-Vitamin B12 tablet) magnesium gluconate 27 mg 54 mg PO QDAY 11/21/23 04/10/25 magnesium (500 mg) tablet (Mag-G) Previous Rx's ?Medication ?Instructions ?Recorded lancets (Microlet Lancet) #100 ea 06/01/23 nitroglycerin 0.4 mg sublingual 0.4 mg sublingual Q5-15M PRN chest 09/08/24 tablet pain #30 tabs blood sugar diagnostic (Contour #100 ea 09/10/24 Test Strips) atenolol 50 mg tablet 75 mg (1.5 x 50 mg) PO QDAY #135 10/20/24 tabs oxycodone 5 mg tablet 2.5 - 5 mg (0.5 - 1 x 5 mg) PO TID 03/03/25 PRN pain #30 tabs apixaban 5 mg tablet (Eliquis) 5 mg PO BID #60 tabs 04/10/25 Allergies Allergy/AdvReac Type Severity Reaction Status Date / Time azithromycin Allergy Severe Verified 04/10/25 09:43 shellfish derived Allergy Severe Verified 04/10/25 09:43 amlodipine Allergy Intermediate Swelling Verified 04/10/25 09:43 and joint pain hydrocodone Allergy Intermediate Headache, Verified 04/10/25 09:43 N&V propoxyphene Allergy Intermediate Headache, Verified 04/10/25 09:43 N&V RADHA Inhibitors AdvReac Cough Verified 04/10/25 09:43 Review of Systems Status of ROS: Reports: 10 or more systems reviewed and unremarkable except as noted in History and below [facility] Medical History Primary hypertension ?I10 - Essential (primary) hypertension (ICD-10) Type 2 diabetes mellitus, without long-term current use of insulin ?E11.9 - Type 2 diabetes mellitus without complications (ICD-10) Situational depression ?F43.21 - Adjustment disorder with depressed mood (ICD-10) Erectile dysfunction ?N52.9 - Male erectile dysfunction, unspecified (ICD-10) COVID-19 virus infection ?U07.1 - COVID-19 (ICD-10) Vitamin D deficiency (02/04/11) ?E55.9 - Vitamin D deficiency, unspecified (ICD-10) Statin intolerance ?Z78.9 - Other specified health status (ICD-10) Lumbar back pain ?M54.50 - Low back pain, unspecified (ICD-10) Irritable bowel syndrome (12/01/08) ?K58.9 - Irritable bowel syndrome without diarrhea (ICD-10) History of drug abuse in remission ?F19.11 - Other psychoactive substance abuse, in remission (ICD-10) History of diverticulitis ?Z87.19 - Personal history of other diseases of the digestive system (ICD-10) History of concussion (07/02/20) ?Z87.820 - Personal history of traumatic brain injury (ICD-10) History of colonic polyps ?Z86.010 - Personal history of colonic polyps (ICD-10) Chronic pain syndrome ?G89.4 - Chronic pain syndrome (ICD-10) Arteriosclerotic cardiovascular disease ?I25.10 - Atherosclerotic heart disease of [place] coronary artery without angina pectoris (ICD-10) Surgical History History of total knee replacement (2000) ?Z96.659 - Presence of unspecified artificial knee joint (ICD-10) History of spinal surgery ?Z98.890 - Other specified postprocedural states (ICD-10) History of hernia repair (1988) ?Z98.890 - Other specified postprocedural states (ICD-10) ?Z87.19 - Personal history of other diseases of the digestive system (ICD-10) History of coronary artery stent placement (07/31/20) ?Z95.5 - Presence of coronary angioplasty implant and graft (ICD-10) History of arthroscopy of left shoulder (02/04/16) ?Z98.890 - Other specified postprocedural states (ICD-10) Family History Son Epilepsy Type 2 diabetes mellitus Father Stomach cancer Prostate cancer Mother Type 2 diabetes mellitus Brother Type 2 diabetes mellitus Social History Narrative: , 3 kids, retired, non-smoker, no alcohol What is your current living situation?: I presently have a place to live Problems where you live: no known problems In the past 12 months, utilities in danger of being shut off: no In past 12 months, lack of transportation kept you from medical appts, meetings, work, or getting things needed for daily living: yes In the past 12 mos, have been you worried that your food would run out before you had money to buy more?: never true In the past 12 mos, the food you bought just didn't last and you didn't have money to buy more?: never true Smoking Status: Former smoker Do you use any of these nicotine containing products: None Second hand tobacco smoke exposure: No How often do you have a drink containing alcohol: never AUDIT-C Alcohol total score: 0 Non-prescribed substance use: denies use How often does anyone, including family, friends and others, physically hurt you: never How often does anyone, including family, friends and others, insult or talk down to you: never How often does anyone, including family, friends and others, threaten you with harm: never How often does anyone, including family, friends and others, scream or curse at you: never service: No Health Related Social Needs: transportation insecurity (Z59.82) Exam Narrative: Exam Narrative: Well-nourished well-developed elderly patient in no acute distress. Alert and oriented. Has somewhat of a difficult time explaining his symptoms. Mood and affect are appropriate. No word-finding difficulty. Speech is not slurred or pressured. HEENT: Normocephalic atraumatic. Pupils are equally round reactive to light. Extraocular muscles are intact. Conjunctivae are moist without any icterus noted. No significant pallor. Moist mucous membranes. Cardiovascular: Regular rate, slightly irregular rhythm. Lungs: Clear to auscultation bilaterally no wheezes rhonchi or rales are appreciated. Patient takes deep breaths without any discomfort. However, he does complain of discomfort when I apply pressure to the anterior chest wall. Abdomen: Soft and nontender nondistended with normal bowel sounds. Extremities: Bilateral lower extremities are without edema. Skin: Well perfused. Const: Vital Signs, click to edit/add: Vital Signs - 24 hr 04/10/25 09:38 04/10/25 09:51 04/10/25 09:57 Temperature 97.8 F Pulse Rate 62 Pulse Rate [Right Pulse Oximeter] 69 Respiratory Rate 18 20 Blood Pressure 143/102 H Blood Pressure [Ri ght Upper Arm] 156/83 H Pulse Oximetry 96 95 93 Oxygen Delivery Me thod Room Air Room Air 04/10/25 09:58 04/10/25 10:00 04/10/25 10:02 Temperature Pulse Rate 67 61 68 Pulse Rate [Right Pulse Oximeter] Respiratory Rate 15 13 16 Blood Pressure 150/87 H Blood Pressure [Ri ght Upper Arm] Pulse Oximetry 95 95 94 Oxygen Delivery Me thod 04/10/25 10:15 04/10/25 10:17 04/10/25 10:30 Temperature Pulse Rate 56 L 67 83 Pulse Rate [Right Pulse Oximeter] Respiratory Rate 14 17 10 L Blood Pressure 153/80 H Blood Pressure [Ri ght Upper Arm] Pulse Oximetry 94 94 88 Oxygen Delivery Me thod 04/10/25 10:35 04/10/25 10:45 04/10/25 10:47 Temperature Pulse Rate 68 56 L 60 Pulse Rate [Right Pulse Oximeter] Respiratory Rate 16 18 12 Blood Pressure 155/92 H Blood Pressure [Ri ght Upper Arm] Pulse Oximetry 95 94 95 Oxygen Delivery Me thod 04/10/25 11:00 04/10/25 11:02 04/10/25 11:15 Temperature Pulse Rate 60 70 59 L Pulse Rate [Right Pulse Oximeter] Respiratory Rate 11 L 27 H 13 Blood Pressure 152/107 H Blood Pressure [Ri ght Upper Arm] Pulse Oximetry 94 94 [facility] 04/10/25 11:17 04/10/25 11:30 04/10/25 11:32 Temperature Pulse Rate 55 L 58 L 63 Pulse Rate [Right Pulse Oximeter] Respiratory Rate 19 11 L 10 L Blood Pressure 156/90 H 149/94 H Blood Pressure [Ri ght Upper Arm] Pulse Oximetry 94 92 94 [facility] 04/10/25 11:33 04/10/25 11:45 04/10/25 11:47 Temperature Pulse Rate 56 L 56 L 51 L Pulse Rate [Right Pulse Oximeter] Respiratory Rate 5 L 10 L 14 Blood Pressure 150/90 H Blood Pressure [Ri ght Upper Arm] Pulse Oximetry 97 97 95 [facility] 04/10/25 12:00 04/10/25 12:15 04/10/25 12:17 Temperature Pulse Rate 57 L 57 L Pulse Rate [Right Pulse Oximeter] Respiratory Rate 20 19 9 L Blood Pressure 154/95 H Blood Pressure [Ri ght Upper Arm] Pulse Oximetry 98 97 Oxygen Delivery Me od 04/10/25 12:30 04/10/25 12:32 04/10/25 12:45 Temperature Pulse Rate 65 60 67 Pulse Rate [Right Pulse Oximeter] Respiratory Rate 15 10 L 14 Blood Pressure 165/96 H Blood Pressure [Ri ght Upper Arm] Pulse Oximetry 96 96 96 [facility] 04/10/25 12:47 Temperature Pulse Rate 63 Pulse Rate [Right Pulse Oximeter] Respiratory Rate 17 Blood Pressure 184/115 H Blood Pressure [Ri ght Upper Arm] Pulse Oximetry 97 Oxygen Delivery Nv thod Course Course ED Course: Patient took 81 mg of aspirin this morning, another 162 mg chewed aspirin was given. IV established. EKG, read by me, shows atrial fibrillation with a pulse 65. Blood work unremarkable. Normal troponin. Chest x-ray, read by me, does not show any acute infiltrates. Repeat EKG unchanged, showing atrial fibrillation with a pulse of 58. Repeat troponin 0.02. Kris Vasc score is 5. Consult with Cardiology at [place], Dr. Vallejo, who is in agreement with anticoagulation at this time. Vital Signs Vital signs: Initial Vital Signs Temperature 97.8 F 04/10/25 09:38 Temperature Source Temporal Artery Scan 04/10/25 09:38 Pulse Rate 69 04/10/25 09:38 Pulse Rhythm Regular 04/10/25 09:38 Pulse Strength 3+ Normal 04/10/25 09:38 Respiratory Rate 18 04/10/25 09:38 Blood Pressure 156/83 H 04/10/25 09:38 Blood Pressure Mean 107 H 04/10/25 09:38 Blood Pressure Position Sitting 04/10/25 09:38 Pulse Oximetry 96 04/10/25 09:38 Oxygen Delivery Method Room Air 04/10/25 09:38 Vital Signs Temperature 97.8 F 04/10/25 09:38 Pulse Rate 69 04/10/25 09:38 Respiratory Rate 18 04/10/25 09:38 Blood Pressure 156/83 H 04/10/25 09:38 Pulse Oximetry 96 04/10/25 09:38 Oxygen Delivery Method Room Air 04/10/25 09:38 Temperature 97.8 F 04/10/25 09:38 Pulse Rate 63 04/10/25 12:47 Respiratory Rate 17 04/10/25 12:47 Blood Pressure 184/115 H 04/10/25 12:47 Pulse Oximetry 97 04/10/25 12:47 Oxygen Delivery Method Room Air 04/10/25 11:47 Medications Administered Medications: Generic Name Dose Route Start Last Admin Trade Name Freq PRN Reason Stop Dose Admin Aspirin 162 mg 04/11/25 09:00 04/10/25 10:03 Aspirin 81 Mg Tab.Chew PO 162 mg DAILY VELMA Administration Discontinued Medications Generic Name Dose Route Start Last Admin Trade Name Freq PRN Reason Stop Dose Admin Sodium Chloride 500 mls @ 500 mls/hr 04/10/25 10:05 04/10/25 12:25 0.9 % Sodium Chloride 500 Ml IV 04/10/25 11:04 Infused .Q1H ONE Infusion Medical Decision Making MDM Narrative Medical decision making narrative: New onset atrial fibrillation. Chest pain that is reproduced on exam. Serial cardiac enzymes and EKGs unremarkable. Discussed anticoagulation with patient and . According to med calc, risk of stroke is over 7%. This was discussed with him. They are very hesitant to start anticoagulation at this time. Of note, he denies any GI bleeding, no fall no recent unsteadiness. No history of intracranial bleeding. He does state that he will consider this and will follow-up with cardiology. Again, the recommendation absolutely is start anticoagulation at this time. Lab Data Lab results reviewed: Yes I reviewed the patient's lab results Labs: Lab Results 04/10/25 04/10/25 04/10/25 Range/Units 09:52 10:20 12:00 WBC 6.39 (4.50-11.00) K/uL RBC 4.30 (4.30-5.90) m/uL Hgb 13.3 L (13.5-17.5) gm/dL Hct 41.1 (37.0-53.0) % MCV 96 (80-100) fL MCH 31 (26-34) pg MCHC 32 (32-36) gm/dL RDW Coeff of Caitlin 14.1 (11.5-15.5) % Plt Count 219 (140-440) K/uL Neut % (Auto) 64.4 (42.0-72.0) % Lymph % (Auto) 17.1 L (20-44) % [place] % (Auto) 10.5 (0.0-11.0) % Eos % (Auto) 7.4 H (0.0-7.0) % Baso % (Auto) 0.6 (0.0-3.0) % Neut # (Auto) 4.12 (1.7-7.0) K/uL Lymph # (Auto) 1.10 (0.90-2.90) K/uL [place] # (Auto) 0.70 (0.00-0.90) K/UL Eos # (Auto) 0.50 (0.00-0.50) K/uL Baso # (Auto) 0.04 (0.00-0.30) K/uL Abs Immat Gran (auto) 0.00 (0.00-0.30) K/uL Imm/Tot Granulo (auto) 0.0 % ESR 14 (2-15) mm/hr Sodium 139 (135-149) mmol/L Potassium 4.5 (3.6-5.1) mmol/L Chloride 105 (96-114) mmol/L Carbon Dioxide 25 (20-32) mmol/L Anion Gap 9 (7-15) mEq/L BUN 23 (7-30) mg/dL Creatinine 1.3 (0.5-1.5) mg/dL Estimated Creat Clear 49.74 Estimated GFR 56 ml/min Glucose 116 H (60-115) mg/dL Lactate 1.1 (0.5-1.9) mmol/L Calcium 9.7 (8.4-10.6) mg/dL Total Bilirubin 1.4 (0.1-1.5) mg/dL Direct Bilirubin 0.3 (0.0-0.5) mg/dL AST 40 H (12-35) U/L ALT 19 (4-50) U/L Alkaline Phosphatase 96 (40-150) U/L Troponin I 0.01 (0.01-0.04) ng/mL C-Reactive Protein 1.4 H (0.5-1.0) mg/dL Total Protein 7.5 (6.0-8.3) g/dL Albumin 4.1 (3.3-5.0) g/dL Lipase 67 (23-300) U/L POC Troponin I 0.01 0.02 (0.01-0.04) ng/ml Imaging Data Chest x-ray: Attestation: I have reviewed the pertinent imaging results. Radiologist's impression: TECHNIQUE: Chest 2 views. COMPARISON: 10/12/2023 FINDINGS: Peripheral coarse interstitial opacities appear slightly more confluent compared to prior. No significant pleural effusion. No pneumothorax. Heart size and mediastinal contours are stable. IMPRESSION: Slight increase in peripheral coarsened interstitial opacities compared to 202. 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 Follow-up chest CT may be performed for confirmation. ECG Data Attestation: I personally reviewed and interpreted this ECG as follows: Discharge Plan Discharge Clinical Impression: Atrial fibrillation Patient Disposition: Home, Self-Care Condition: Stable Additional Instructions: Recommend cardiology follow up as soon as possible. You will be started on Eliquis, this is a blood thinning medication. This is a very important medication to prevent strokes from occurring. Recommend you start this right away. Return to the emergency department if you develop dizziness, shortness of breath or worsening chest pain. Prescriptions: New Eliquis 5 mg tablet 5 mg PO BID Qty: 60 0RF No Action vitamin B complex [B Complex-Vitamin B12] Tablet 1 tab PO QDAY cholecalciferol (vitamin D3) 125 mcg (5,000 unit) capsule 5,000 unit PO DAILY zinc gluconate 50 mg tablet 50 mg PO DAILY aspirin 81 mg tablet,delayed release (DR/EC) 81 mg PO DAILY ascorbic acid (vitamin C) 1,000 mg tablet 1,000 mg PO DAILY magnesium gluconate [Mag-G] 27 mg magnesium (500 mg) tablet 54 mg PO QDAY nitroglycerin 0.4 mg tablet, sublingual 0.4 mg sublingual Q5-15M PRN (Reason: chest pain) Qty: 30 1RF atenolol 50 mg tablet 75 mg PO QDAY Qty: 135 1RF oxycodone 5 mg tablet 2.5 - 5 mg PO TID PRN (Reason: pain) Qty: 30 0RF (DME) lancets [Microlet Lancet] Misc See Rx Instructions .Route Qty: 100 3RF Rx Instructions: Patient to test once daily (DME) Contour Test Strips Strip See Rx Instructions .Route Qty: 100 3RF Rx Instructions: Patient to test once daily Follow Up/Referrals: Jacob Shabazz MD [Primary Care Provider, Family Practice] Stand Alone Forms: [employer] Info Instructions
[2025-04-10 10:26] LABS: Lactate* 1.1 mmol/L (0.5-1.9)
[2025-04-10 10:31] LABS: Basophils Absolute Auto 0.04 K/uL (0.00-0.30); Basophils Percent Auto 0.6 % (0.0-3.0); Eosinophils Percent Auto 7.4 % (0.0-7.0); Hematocrit 41.1 % (37.0-53.0); Hemoglobin* 13.3 gm/dL (13.5-17.5); Lymphocytes Percent Auto 17.1 % (20-44); Mean Corpuscular HGB Conc 32 gm/dL (32-36); Mean Corpuscular Hemoglobin 31 pg (26-34); Mean Corpuscular Volume 96 fL (80-100); Monocytes Percent Auto 10.5 % (0.0-11.0); Neutrophils Absolute Auto 4.12 K/uL (1.7-7.0); Neutrophils Percent Auto 64.4 % (42.0-72.0); Platelet Count* 219 K/uL (140-440); RDW Coefficient of Variation % 14.1 % (11.5-15.5); White Blood Count* 6.39 K/uL (4.50-11.00)
[2025-04-10 10:34] LABS: Slide Review Reflex No
[2025-04-10] MEDS: 0.9 % SODIUM CHLORIDE 500 ML 500 ML IV (10:42)
[2025-04-10 10:46] LABS: Albumin* 4.1 g/dL (3.3-5.0); Chloride* 105 mmol/L (96-114)
[2025-04-10 10:47] LABS: Potassium* 4.5 mmol/L (3.6-5.1); Sodium* 139 mmol/L (135-149)
[2025-04-10 10:49] LABS: Blood Urea Nitrogen* 23 mg/dL (7-30); Creatinine* 1.3 mg/dL (0.5-1.5); Est. Creatinine Clearance* 49.74; Estimated Glomerular Filt Rate 56 ml/min
[2025-04-10 10:50] LABS: Alanine Aminotransferase* 19 U/L (4-50); Alkaline Phosphatase* 96 U/L (40-150); Anion Gap 9 mEq/L (7-15); Aspartate Amino Transferase* 40 U/L (12-35); Bilirubin Direct* 0.3 mg/dL (0.0-0.5); Bilirubin Total* 1.4 mg/dL (0.1-1.5); Calcium* 9.7 mg/dL (8.4-10.6); Carbon Dioxide* 25 mmol/L (20-32); Glucose* 116 mg/dL (60-115); Lipase* 67 U/L (23-300); Total Protein* 7.5 g/dL (6.0-8.3)
[2025-04-10 10:50] LABS: Troponin, Point-of-Care* 0.01 ng/ml (0.01-0.04)
[2025-04-10 10:53] LABS: C Reactive Protein* 1.4 mg/dL (0.5-1.0)
[2025-04-10 11:01] LABS: Troponin I* 0.01 ng/mL (0.01-0.04)
[2025-04-10 11:15] LABS: Erythrocyte SedimentationRate* 14 mm/hr (2-15)
[2025-04-10 12:35] LABS: Troponin, Point-of-Care* 0.02 ng/ml (0.01-0.04)
== END 2025-04-10 13:18 | disposition home or self-care (01) ==
PROVIDERS: Emergency Provider Family Medicine; PCP Family Medicine
DX: I48.91 Unspecified atrial fibrillation (principal); R07.9 Chest pain, unspecified; M25.512 Pain in left shoulder; M25.511 Pain in right shoulder; Z87.891 Personal history of nicotine dependence
CPT/HCPCS: 36415; 71046; 80048; 80076; 83605; 83690; 84484; 85025; 85651; 86140; 93005; 94761; 96360; 99284; 99285; A9270; J7030

== ENCOUNTER 2025-04-14 15:16 | Outpatient (CLI) | payer MEDICARE, SELFPAY | END 2025-04-14 15:17 | disposition home or self-care (01) | LOC: FBOREF 15:17 | PROVIDERS: PCP Family Medicine; Visit Provider Family Medicine | DX: E11.9 Type 2 diabetes mellitus without complications (principal); I10 Essential (primary) hypertension | CPT/HCPCS: 80061 ==

== ENCOUNTER 2025-06-08 08:52 | Outpatient (CLI) | payer MEDICARE, SELFPAY | END 2025-06-08 08:53 | disposition home or self-care (01) | LOC: NFLDREF 06-09 18:24 | PROVIDERS: PCP Family Medicine; Referring Provider Family Medicine; Visit Provider Family Medicine | DX: I48.91 Unspecified atrial fibrillation (principal); Z79.01 Long term (current) use of anticoagulants | CPT/HCPCS: 85610 ==

== ENCOUNTER 2025-07-13 09:35 | Outpatient (CLI) | payer MEDICARE, SELFPAY ==
[2025-07-13 14:09] LABS: PCR FLU A Negative PCR FLU A (Negative); PCR FLU B Negative PCR FLU B (Negative); PCR RSV Negative PCR RSV (Negative); SARS PCR* Negative SARS-CoV-2 (Negative)
== END 2025-07-13 09:36 | disposition home or self-care (01) ==
LOC: FBOREF 09:35
PROVIDERS: PCP Family Medicine; Visit Provider Family Medicine
DX: J02.9 Acute pharyngitis, unspecified (principal)
CPT/HCPCS: 87631

== ENCOUNTER 2025-09-01 09:24 | Outpatient (CLI) | payer MEDICARE, SELFPAY | END 2025-09-01 09:25 | disposition home or self-care (01) | LOC: NFLDREF 09-05 16:54 | PROVIDERS: PCP Family Medicine; Referring Provider Family Medicine; Visit Provider Family Medicine | DX: G45.9 Transient cerebral ischemic attack, unspecified (principal); Z79.01 Long term (current) use of anticoagulants | CPT/HCPCS: 85610 ==